=== PATIENT | female | born 1950 | race Caucasian/White ===

== ENCOUNTER → 2017-01-26 | Outpatient (CLI) | payer MEDICARE, OTHER ==
[~2017-01-26] MED LIST: ASPI1CPM9 PO; ATEN50TA PO; CODE1CAP24 PO; LEVO88TA4 PO; LORA0.5T PO; OLME20TA19 PO; PARO20TA3 PO; QUET200T4 PO; SERT25TA4 PO; SIMV20TA3 PO
--- NOTE | 2017-01-26 15:40 | RAD ---
Thyroid ultrasound, 01/26/2017: History: Fatigue, increased trouble swallowing The right lobe of the gland measures 3.9 x 1.6 x 1.5 cm while the left lobe of the gland measures 3.4 x 1.5 x 1.6 cm. Both lobes of the gland demonstrate heterogeneous densities with increased vascularity throughout the gland. No discrete thyroid nodule is seen in either lobe. IMPRESSION: Markedly heterogeneous thyroid gland with diffusely increased vascularity suggesting some form of thyroiditis.
== END | disposition home or self-care (01) ==
LOC: US 14:40
PROVIDERS: ATTEND Nurse Practitioner Family
DX: E03.9 Hypothyroidism, unspecified (principal); E04.9 Nontoxic goiter, unspecified; R53.83 Other fatigue; R13.10 Dysphagia, unspecified; W55.1 Contact with horse
CPT/HCPCS: 76536